=== PATIENT | female | born 1995 | race Two or more races ===

== ENCOUNTER 2025-05-11 15:36 | Emergency (ER) | payer OTHER ==
[~2025-05-11] VITALS: Ht 152.4 cm; Wt 38.1 kg
[2025-05-11 18:00] LABS: BASO % 0.3 % (0.1-1.2); EOS # 0.21 (0.04-0.54); EOS % 3.4 % (0.7-7.0); LYMPH # 1.60 (1.18-3.74); LYMPH % 26.1 % (19.3-53.1); MEAN PLATELET VOLUME 10.20 fl (9.4-12.4); MONO # 0.41 (0.24-0.82); MONO % 6.7 % (4.7-12.5); NEUT # 3.86 (1.56-6.13); NEUT % 62.8 % (34.0-71.1); RED CELL DISTRIBUTION WIDTH 14.0 % (11.6-14.4)
[2025-05-11 18:17] LABS: ALT/SGPT 28.0 U/L (12-78); AST/SGOT 21.0 U/L (15-37); BILIRUBIN TOTAL 0.25 mg/dL (0.3-1.2); BUN CREA RATIO 27.0 (7.0-25.0); CREATININE SERUM 0.3 mg/dL (0.55-1.02); GFR 261.21; GLOBULINA 4.1 G/DL (2.4-3.5); GLUCOSE FASTING 83.0 mg/dL (65-100); OSMOLALITY SERUM 275.0 MOSM/KG (275-295)
[2025-05-11 21:22] LABS: URINE APPEARANCE Clear; URINE BILIRRUBIN Negative (NEGATIVE); URINE BLOOD Trace; URINE COLOR Yellow; URINE GLUCOSE Negative (NEGATIVE); URINE KETONE Negative (NEGATIVE); URINE LEUKOCYTE Negative; URINE NITRATE Negative; URINE PROTEIN Negative (NEGATIVE); URINE UROBILINOGEN 0.2 E.U./dl
[2025-05-11 21:23] LABS: URINE BACTERIA 249.3 uL (0.0-1933); URINE EPITHELIAL CELLS 6.4 uL (0.0-38.8); URINE RBC 18.1 uL (0.0-20.8); URINE WBC 7.6 uL (0.0-23.2)
[2025-05-11 21:24] LABS: URINE CAST 0.00 uL (0.0-1.40)
== END 2025-05-11 22:08 ==
LOC: ER 15:37
PROVIDERS: General Practice
DX: O26.899 Other specified pregnancy related conditions, unspecified trimester (principal); R10.20 Pelvic and perineal pain unspecified side; Z3A.19 19 weeks gestation of pregnancy